=== PATIENT | female | born 1930 | race Caucasian/White ===

== ENCOUNTER 2017-07-13 13:50 | Inpatient (IN) | payer OTHER ==
[2017-07-13 14:26] LABS: #Basophils 0.1 thou/uL (0.0-0.2); #Eosinphils 0.2 thou/uL (0.0-0.7); #Lymphocytes 2.1 thou/uL (1.20-3.40); #Monocytes 0.5 thou/uL (0.11-0.59); #Neutrophils 4.2 thou/uL (1.40-6.50); %Eosinophils 2.7 % (0.0-10.0); %Lymphocytes 29.8 % (21.0-51.0); %Monocytes 6.6 % (0.0-10.0); %Neutrophils 59.9 % (42.0-75.0); Hemoglobin 12.8 g/dL (12.0-16.0); Mean Corpuscular HGB CONC 31.8 g/dL (32.0-36.0); Mean Corpuscular Hemoglobin 28.7 pg (27.0-31.0); Mean Corpuscular Volume 90.2 fl (81.0-99.0); Mean Platelet Volume 8.6 fL (7.4-10.4); Platelet Count 244 thou/uL (130-400); RBC Distribution Width 14.6 % (11.5-14.5); Red Blood Cell (RBC) Count 4.47 mill/uL (4.20-5.40); White Blood Cell (WBC) Count 7.1 thou/uL (4.8-10.8)
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
[2017-07-13 14:51] LABS: ALT (SGPT) 14 U/L (8-55); AST (SGOT) 21 U/L (5-34); Albumin 3.9 g/dL (3.4-4.8); Alkaline Phosphatase 66 U/L (40-150); Anion Gap 13 mmol/L (10-20); BUN (Urea Nitrogen) 23 mg/dL (9.8-20.1); Bilirubin, Total 0.3 mg/dL (0.2-1.2); CK (CPK) 209 U/L (29-168); Calc. Creatinine Clearance 0 mL/min (70-130); Calcium 9.5 mg/dL (7.8-10.44); Carbon Dioxide 26 mmol/L (23-31); Chloride 104 mmol/L (98-107); Estimated GFR-MDRD 61; Globulin 3.4 g/dL (2.4-3.5); Glucose 124 mg/dL (83-110); Lipase 32 U/L (8-78); Potassium 3.9 mmol/L (3.5-5.1); Protein, Total 7.3 g/dL (6.0-8.3); Sodium 139 mmol/L (136-145)
[2017-07-13 14:55] LABS: CKMB 1.5 ng/mL (0-6.6); Troponin I Less than 0.010 ng/mL (< 0.028)
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
[2017-07-13] MEDS ORDERED: ISOVUE-370 76%-LOCM 1 ML ONE (15:42)
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
[2017-07-13] MEDS ORDERED: cloNIDine 0.1 MG TAB ONE (16:16)
[2017-07-13] MEDS ORDERED: Ondansetron HCl/PF 4 MG/2 ML Vial ONE (16:16)
[2017-07-13] MEDS ORDERED: Morphine 2 MG/ML SYRINGE ONE (16:16)
[2017-07-13] MEDS ORDERED: Ketorolac Tromethamine 30 MG/ML VIAL ONE (17:02)
[2017-07-13] MEDS ORDERED: Dextrose 5% in Water 1,000 ML IV PRN (17:21)
[2017-07-13] MEDS ORDERED: Dextrose 50% Abboject 50 ML SYRINGE SLOW IVP PRN (17:21)
[2017-07-13] MEDS ORDERED: Ondansetron HCl/PF 4 MG/2 ML Vial IVP PRN (17:21)
[2017-07-13] MEDS ORDERED: Sodium Chloride 0.9% 1,000 ML IV SCH (17:30)
[2017-07-13] MEDS ORDERED: Rib Fracture Protocol PO SCH (17:30)
[2017-07-13] MEDS ORDERED: hydrALAZINE 20 MG/ML VIAL ONE (17:38)
[2017-07-13] MEDS ORDERED: Cyclobenzaprine 10 MG TAB PO PRN (18:45)
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
[2017-07-13] MEDS: Famotidine 20 MG TAB PO SCH (22:28)
[2017-07-13] MEDS: Gabapentin 100 MG CAP PO SCH (22:28)
[2017-07-13] MEDS ORDERED: Sodium Chloride 0.9% 500 ML IVPB SCH (22:45)
[2017-07-13] MEDS: Ibuprofen 600 MG TAB PO SCH (23:50)
[2017-07-13] MEDS: Famotidine/PF 20 mg/2ml Vial SLOW IVP SCH (23:50)
[2017-07-13] MEDS: Sodium Chloride 0.9% 1,000 ML IV SCH (23:56)
[2017-07-14] MEDS: Acetaminophen 500 MG TAB PO SCH ×5 (00:17→23:58)
[2017-07-14] MEDS: cloNIDine 0.1 MG TAB PO SCH ×4 (00:18→17:43)
[2017-07-14] MEDS: traMADol HCl 50 MG TAB PO SCH ×5 (00:18→23:58)
[2017-07-14 01:16] VITALS: BMI 31.0
[2017-07-14] MEDS: Sodium Chloride 0.9% 1,000 ML IV SCH (03:36)
[2017-07-14 04:10] LABS: Anion Gap 10 mmol/L (10-20); BUN (Urea Nitrogen) 24 mg/dL (9.8-20.1); Calc. Creatinine Clearance 58 mL/min (70-130); Calcium 8.5 mg/dL (7.8-10.44); Carbon Dioxide 26 mmol/L (23-31); Chloride 105 mmol/L (98-107); Estimated GFR-MDRD 76; Glucose 142 mg/dL (83-110); Magnesium 1.9 mg/dL (1.6-2.6); Phosphorus 3.4 mg/dL (2.3-4.7); Potassium 4.1 mmol/L (3.5-5.1); Sodium 137 mmol/L (136-145)
[2017-07-14] MEDS: Ibuprofen 600 MG TAB PO SCH ×3 (05:35→20:53)
[2017-07-14] MEDS: Famotidine/PF 20 mg/2ml Vial SLOW IVP SCH (08:41)
[2017-07-14] MEDS: Gabapentin 100 MG CAP PO SCH ×3 (08:48→20:53)
[2017-07-14] MEDS: Famotidine 20 MG TAB PO SCH ×2 (08:48→20:53)
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
[2017-07-15] MEDS: cloNIDine 0.1 MG TAB PO SCH ×2 (00:01→05:32)
[2017-07-15] MEDS: Ibuprofen 600 MG TAB PO SCH ×3 (05:30→21:29)
[2017-07-15] MEDS: traMADol HCl 50 MG TAB PO SCH ×4 (05:31→23:52)
[2017-07-15] MEDS: Acetaminophen 500 MG TAB PO SCH ×4 (05:31→23:52)
[2017-07-15] MEDS: Ondansetron ODT 4 MG TAB PO PRN ×2 (08:09→14:32)
[2017-07-15] MEDS: Enoxaparin Sodium 30 MG/0.3 ML SYRINGE SC SCH (08:38)
[2017-07-15] MEDS: Famotidine 20 MG TAB PO SCH ×2 (08:38→21:29)
[2017-07-15] MEDS: Gabapentin 100 MG CAP PO SCH ×3 (08:38→21:29)
[2017-07-15 08:45] LABS: #Eosinphils 0.4 thou/uL (0.0-0.7); #Lymphocytes 1.7 thou/uL (1.20-3.40); #Monocytes 0.6 thou/uL (0.11-0.59); #Neutrophils 5.1 thou/uL (1.40-6.50); %Basophils 0.5 % (0.0-1.0); %Eosinophils 4.6 % (0.0-10.0); %Lymphocytes 21.6 % (21.0-51.0); %Neutrophils 65.3 % (42.0-75.0); Hemoglobin 10.7 g/dL (12.0-16.0); Mean Corpuscular HGB CONC 31.3 g/dL (32.0-36.0); Mean Corpuscular Hemoglobin 28.5 pg (27.0-31.0); Mean Corpuscular Volume 91.1 fl (81.0-99.0); Mean Platelet Volume 8.7 fL (7.4-10.4); Platelet Count 179 thou/uL (130-400); RBC Distribution Width 14.9 % (11.5-14.5); Red Blood Cell (RBC) Count 3.74 mill/uL (4.20-5.40); White Blood Cell (WBC) Count 7.8 thou/uL (4.8-10.8)
[2017-07-15 08:54] LABS: Anion Gap 10 mmol/L (10-20); BUN (Urea Nitrogen) 21 mg/dL (9.8-20.1); Calc. Creatinine Clearance 62 mL/min (70-130); Calcium 8.6 mg/dL (7.8-10.44); Carbon Dioxide 25 mmol/L (23-31); Chloride 107 mmol/L (98-107); Estimated GFR-MDRD 81; Glucose 103 mg/dL (83-110); Phosphorus 2.7 mg/dL (2.3-4.7); Potassium 3.6 mmol/L (3.5-5.1); Sodium 138 mmol/L (136-145)
[2017-07-15] MEDS ORDERED: Scopolamine 1.5 mg/72 hour Patch TD SCH (09:00)
[2017-07-15] MEDS ORDERED: Prevnar 13-Val Conj/PF 0.5 ML SYRINGE IM ONE (09:00)
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
[2017-07-15] MEDS ORDERED: Furosemide 20 MG/2 ML VIAL SLOW IVP SCH (09:30)
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
[2017-07-15] MEDS: cefTRIAXone\\ROCEPHIN 2 GM in Sodium Chloride 0.9% 100 ML IVPB SCH (10:15)
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
[2017-07-16 05:34] LABS: Anion Gap 10 mmol/L (10-20); BUN (Urea Nitrogen) 21 mg/dL (9.8-20.1); Calc. Creatinine Clearance 62 mL/min (70-130); Calcium 8.7 mg/dL (7.8-10.44); Carbon Dioxide 29 mmol/L (23-31); Chloride 104 mmol/L (98-107); Estimated GFR-MDRD 81; Glucose 91 mg/dL (83-110); Magnesium 2.1 mg/dL (1.6-2.6); Phosphorus 2.9 mg/dL (2.3-4.7); Potassium 3.8 mmol/L (3.5-5.1); Sodium 139 mmol/L (136-145)
[2017-07-16] MEDS: Acetaminophen 500 MG TAB PO SCH ×3 (05:51→17:36)
[2017-07-16] MEDS: traMADol HCl 50 MG TAB PO SCH ×3 (05:51→17:36)
[2017-07-16] MEDS: Ibuprofen 600 MG TAB PO SCH ×3 (05:51→21:27)
[2017-07-16] MEDS: Famotidine 20 MG TAB PO SCH ×2 (08:05→21:26)
[2017-07-16] MEDS: Gabapentin 100 MG CAP PO SCH ×3 (08:05→21:26)
[2017-07-16] MEDS: Enoxaparin Sodium 30 MG/0.3 ML SYRINGE SC SCH (08:08)
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
[2017-07-16] MEDS: cefTRIAXone\\ROCEPHIN 2 GM in Sodium Chloride 0.9% 100 ML IVPB SCH (11:59)
[2017-07-16] MEDS ORDERED: Docusate 100 MG CAP PO SCH (19:00)
[2017-07-16] MEDS ORDERED: Senokot 8.6 MG TAB PO SCH (19:00)
[2017-07-16] MEDS ORDERED: Acetaminophen 325 MG TAB PO SCH (21:00)
[2017-07-16] MEDS: Sulfameth/Trimethoprim DS 800-160mg TAB PO SCH (21:27)
[2017-07-16] MEDS: HYDROcodone/Acetaminophen 7.5/325 mg Tablet PO SCH (21:28)
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
[2017-07-16] MEDS: Acetaminophen 325 MG TAB PO SCH (23:33)
[2017-07-17] MEDS: HYDROcodone/Acetaminophen 7.5/325 mg Tablet PO SCH ×4 (04:09→20:39)
[2017-07-17] MEDS: Ibuprofen 600 MG TAB PO SCH ×3 (06:12→21:26)
[2017-07-17] MEDS: Acetaminophen 325 MG TAB PO SCH ×3 (06:12→18:43)
[2017-07-17] MEDS: Gabapentin 100 MG CAP PO SCH ×3 (08:44→20:34)
[2017-07-17] MEDS: Famotidine 20 MG TAB PO SCH ×2 (08:44→20:30)
[2017-07-17] MEDS: Sulfameth/Trimethoprim DS 800-160mg TAB PO SCH ×2 (08:45→20:34)
[2017-07-17] MEDS: Enoxaparin Sodium 30 MG/0.3 ML SYRINGE SC SCH (08:45)
[2017-07-17] MEDS ORDERED: Docusate 100 MG CAP PO SCH (09:00)
[2017-07-17] MEDS ORDERED: Bisacodyl 10 MG SUPP PR SCH (09:00)
[2017-07-17] MEDS ORDERED: Polyethylene Glycol 3350 17 GM Packet PO SCH (09:00)
[2017-07-17] MEDS ORDERED: Senokot 8.6 MG TAB PO SCH (09:00)
[2017-07-17] MEDS: Ondansetron ODT 4 MG TAB PO PRN ×3 (09:41→21:24)
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
[2017-07-17] MEDS ORDERED: Scopolamine 1.5 mg/72 hour Patch TD SCH (15:00)
[2017-07-17 20:57] VITALS: BP 156/76; TEMP 97.9
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
== END 2017-07-17 22:10 | DRG 89 ==
LOC: ERS 13:50 → IMCU/EMU 18:53 → SURG B 07-14 14:29
PROVIDERS: ADMIT Surgery; ATTEND Surgery
PROC: 5A09357 Assistance with Respiratory Ventilation, Less than 24 Consecutive Hours, Continuous Positive Airway Pressure (ICD-10-PCS; principal; 2017-07-13)
DX: S06.0X1A Concussion with loss of consciousness of 30 minutes or less, initial encounter (principal); S22.20XA Unspecified fracture of sternum, initial encounter for closed fracture; S22.43XA Multiple fractures of ribs, bilateral, initial encounter for closed fracture; J98.11 Atelectasis; J98.4 Other disorders of lung; I10 Essential (primary) hypertension; G89.11 Acute pain due to trauma; R09.02 Hypoxemia; V49.50XA Passenger injured in collision with unspecified motor vehicles in traffic accident, initial encounter
CPT/HCPCS: 36415; 70450; 71045; 71260; 72125; 74177; 80048; 80053; 82533; 82550; 82553; 83690; 83735; 83880; 84100; 84484; 85025; 93005; 94640; 94660; 96361; 96374; 96375; G0390; G8978-GP-CI; G8978-GP-CJ; G8979-GP-CI; G8979-GP-CJ; G8980-GP-CI; G8980-GP-CJ; G8987-GO-CI; G8988-GO-CI; G8989-GO-CI; J0360; J0696; J1650; J1885; J1940; J2270; J2405; J7050; J7620; Q0162